=== PATIENT | female | born 1940 | race Caucasian/White ===

== ENCOUNTER 2020-12-05 09:57 | Outpatient (CLI) | payer MEDICARE, SELFPAY ==
--- NOTE | 2020-12-05 10:02 | USCV_ITS ---
Marcia Truong Age: 80 Gender: F : 1940 Exam Date: 12/05/2020 10:29 Ordering Phys: Misael Garcia Technologist: Daniel Chen Exam Location: [facility] – [place] Indication: DYSNEA BP: 124 / 78 HR: 86 Rhythm: Sinus Technical Quality: Adequate MEASUREMENTS (Male / Female) Normal Values 2D ECHO LV Diastolic Diameter PLAX 3.8 cm 4.2 - 5.9 / 3.9 - 5.3 cm LV Systolic Diameter PLAX 2.4 cm IVS Diastolic Thickness 1.0 cm 0.6 - 1.0 / 0.6 - 0.9 cm IVS Systolic Thickness 1.3 cm LVPW Diastolic Thickness 1.0 cm 0.6 - 1.0 / 0.6 - 0.9 cm LVPW Systolic Thickness 1.4 cm LVOT Diameter 2.0 cm LV Ejection Fraction 2D Teich 65.6 % LV Ejection Fraction MOD 2C 80.0 % LV Ejection Fraction 2C AL 80.8 % LA Diameter 2.8 cm LA Width 3.3 cm LA Height 4.3 cm RA Width 3.4 cm RA Height 4.2 cm Aorta at Sinotubular Diameter 2.9 cm DOPPLER AV Peak Velocity 220.0 cm/s LVOT Peak Velocity 91.0 cm/s AV Area Cont Eq vti 1.5 cm squared AV Area Cont Eq pk 1.3 cm squared MV Area PHT 3.3 cm squared Mitral E to A Ratio 0.9 MV E' Velocity 54.5 cm/s Mitral E to MV E' Ratio 11.5 Mitral E to LV E' Lateral Ratio 9.8 Mitral E to LV E' Septal Ratio 13.9 TR Peak Velocity 136.0 cm/s TR Peak Gradient 7.4 mmHg TV Peak E Velocity 66.0 cm/s Right Atrial Pressure 3.0 mmHg Pulmonary Artery Systolic Pressu 10.4 mmHg FINDINGS Left Ventricle Normal left ventricular size and systolic function, EF 55 % (visual). Mild diffuse hypokinesia of the septum and the anteroseptal segments.Grade I/IV diastolic dysfunction (abnormal relaxation filling pattern), normal to mildly elevated filling pressures. Right Ventricle The right ventricle is normal in size and function. Right Atrium The right atrium is normal in size. Left Atrium Mildly increased left atrial size. Mitral Valve Mild mitral annular calcification. Trace mitral valve regurgitation. Aortic Valve Thickened aortic valve. Trace to mild aortic valve regurgitation. Moderate aortic valve calcification Tricuspid Valve No gross abnormalities noted Pulmonic Valve No gross abnormalities noted Pericardium Normal pericardium without effusion. Aorta Normal ascending aorta dimension. CONCLUSIONS Normal left ventricular size and systolic function, EF 55 % (visual). Mild diffuse hypokinesia of the septum and the anteroseptal segments. Grade I/IV diastolic dysfunction (abnormal relaxation filling pattern), normal to mildly elevated filling pressures. Mildly increased left atrial size. Features of aortic valve sclerosis Mild mitral annular calcification. Trace mitral valve regurgitation. Thickened aortic valve. Trace to mild aortic valve regurgitation. There is no pericardial effusion. There are no intracardiac masses. Compared to the study from 01/02/2018, there may not be a significant change Dr Gisela Pavon MD FAC (Electronically Signed) Final Date: 06 December 2020 00:00 S
--- NOTE | 2020-12-05 11:00 | USCV_ITS ---
Marcia Truong Age: 80 Gender: F : 1940 Exam Date: 12/05/2020 10:43 Ordering Phys: Misael Garcia Technologist: Daniel Chen [place] [facility] [place]: DYSNEA Risk Factors: Previous Vascular Surgery: Right Brachial BP: / Left Brachial BP: / Right Left Velocity (cm/s) Spectral Plaque Velocity (cm/s) Spectral Plaque Syst/Diast Broadening Syst/Diast Broadening 98.10/ 13.20 Prox CCA 71.00 / 10.70 93.70/ 14.30 Mid CCA 58.00 / 9.50 88.20/ 11.00 Distal CCA 63.90 / 8.30 104.20/18.90 Prox ICA 130.20/ 16.60 120.80/20.10 Mid ICA 142.50/ 19.90 131.40/24.90 Distal ICA 156.30/ 26.00 83.20 ECA 92.40 1.34 ICA/CCA 2.20 Antegrade Vertebral Antegrade 78.10/ 3.60 cm/s 124.3/ 13.00 cm/s 0 Tri Subclavian Tri 132.6 0 FINDINGS Comparison: none available. Diffuse bilateral scattered calcified plaque and intimal thickening throughout the common carotid arteries and extending through the bifurcation. Mild elevation of velocity and turbulence left ICA. Bilateral antegrade vertebral arteries. CONCLUSIONS Bilateral ICA stenosis less than 50%. Slightly greater stenosis on the left. Moderate diffuse atherosclerosis. Dr. Kati Kemp DO (Electronically Signed) Final Date: 05 December 2020 11:41 S
== END 2020-12-05 09:58 | disposition home or self-care (01) ==
LOC: US 10:00
PROVIDERS: PCP Family Medicine; Visit Provider Family Medicine
DX: R01.1 Cardiac murmur, unspecified (principal); R06.00 Dyspnea, unspecified; I65.23 Occlusion and stenosis of bilateral carotid arteries; I70.90 Unspecified atherosclerosis; I08.0 Rheumatic disorders of both mitral and aortic valves
CPT/HCPCS: 93306; 93880

== ENCOUNTER 2022-12-09 08:59 | Outpatient (CLI) | payer MEDICARE, SELFPAY ==
--- NOTE | 2022-12-09 09:07 | USCV_ITS ---
Marcia Truong Age: 82 Gender: F : 1940 Exam Date: 12/09/2022 09:19 Ordering Phys: Shalini Bowling Technologist: [place] [facility] [place]: [place] Risk Factors: Previous Vascular Surgery: Right Brachial BP: / Left Brachial BP: / Right Left Velocity (cm/s) Spectral Plaque Velocity (cm/s) Spectral Plaque Syst/Diast Broadening Syst/Diast Broadening 90.30/ 7.70 Prox CCA 80.10 / 12.80 123.00/13.50 Mid CCA 99.20 / 11.20 140.30/11.50 Distal CCA 105.40/ 17.40 111.20/16.00 Prox ICA 145.40/ 26.40 131.20/16.40 Mid ICA 138.80/ 22.50 103.50/17.70 Distal ICA 125.60/ 23.80 115.30 ECA 110.70 0.94 ICA/CCA 1.38 Retrograde Vertebral Antegrade / cm/s 90.10/ 12.40 cm/s Bi Subclavian Bi 103.5 251.5 0 0 FINDINGS diffuse calcifid plq throuhout, rt retrograde vert comp 2020 CONCLUSIONS Right ICA stenosis <50%. Moderate calcified atheromatous plaque right carotid bulb/ICA. Left ICA stenosis 50-69%. Moderate calcified atheromatous plaque left carotid bulb/ICA. Left ICA velocities slightly progressed Intimal thickening in the common carotid arteries and internal carotid arteries bilaterally. Retrograde Doppler flow noted in the right vertebral artery suspicious for subclavian steal. Biphasic subclavian waveform. Normal antegrade Doppler flow noted in the left vertebral artery. Abraham Zuleta MD (Electronically Signed) Final Date: 09 December 2022 12:12 S
== END 2022-12-09 09:00 | disposition home or self-care (01) ==
PROVIDERS: PCP Family Medicine; Visit Provider Nurse Practitioner Family
DX: I65.23 Occlusion and stenosis of bilateral carotid arteries (principal); R55 Syncope and collapse
CPT/HCPCS: 93880